=== PATIENT | female | born 1970 | race Caucasian/White ===

== ENCOUNTER 2019-09-13 06:19 | Outpatient (CLI) | payer OTHER ==
[2019-09-13 12:21] LABS: Anion Gap 14 mmol/L (10-20); BUN (Urea Nitrogen) 22 mg/dL (9.8-20.1); Calc. Creatinine Clearance 0 mL/min (70-130); Calcium 9.7 mg/dL (7.8-10.44); Carbon Dioxide 29 mmol/L (22-29); Chloride 104 mmol/L (98-107); Estimated GFR-MDRD 43; Glucose 87 mg/dL (70-105); Potassium 4.4 mmol/L (3.5-5.1); Sodium 143 mmol/L (136-145)
[2019-09-13 17:43] LABS: SARS-CoV-2 MS2 Positive; SARS-CoV-2 N Gene Negative; SARS-CoV-2 S Gene Negative; SARS-CoV-2 by NAA Not Detected (NotDetected); SARS-CoV-2 orf1ab Negative
== END 2019-09-13 06:20 | disposition home or self-care (01) ==
LOC: LABBT 06:19
PROVIDERS: ATTEND Neurological Surgery
DX: Z01.812 Encounter for preprocedural laboratory examination (principal); Z11.59 Encounter for screening for other viral diseases; M54.16 Radiculopathy, lumbar region
CPT/HCPCS: 80048; 87635; U0003

== ENCOUNTER 2019-09-17 05:42 | Day surgery (SDC) | payer OTHER ==
[2019-09-11 10:15] VITALS: BMI 33.6
[2019-09-17] MEDS ORDERED: EPINEPHrine 1 MG/ML AMP ONE (06:46)
[2019-09-17] MEDS ORDERED: Thrombin 5000 UNITS/5 ML VIAL ONE (06:46)
[2019-09-17] MEDS ORDERED: Bupivacaine PF 0.5% 30 ML VIAL ONE (06:46)
[2019-09-17] MEDS ORDERED: Midazolam HCl 2 mg/2 ml Vial ONE (06:57)
[2019-09-17] MEDS ORDERED: Famotidine/PF 20 mg/2ml Vial ONE (07:00)
[2019-09-17] MEDS ORDERED: Propofol 500 MG/50 ML VIAL ONE ×2 (07:05→07:53)
[2019-09-17] MEDS ORDERED: Fentanyl 100 MCG/2 ML VIAL ONE ×3 (07:08→08:52)
[2019-09-17] MEDS ORDERED: Lidocaine 2% 10 ML INJ ONE (08:42)
[2019-09-17] MEDS ORDERED: Promethazine HCl 25 MG/ML VIAL ONE (08:47)
--- NOTE | 2019-09-17 08:47 | OP ---
DATE OF PROCEDURE: 09/17/2019 SAMPLE TAKER OPERATOR: Ludwin Gunn PA-C INDICATION: Pain. DIAGNOSIS: Lumbar radiculopathy. PROCEDURE PERFORMED: Left L5 decompression. ANESTHESIA: General. DESCRIPTION OF PROCEDURE: The patient was brought into the operating room and placed under general anesthesia. She was flipped from the supine to prone position on the operating room table. A linear incision was planned at the L5-S1 interspace. After prepping and draping and after an appropriate preoperative pause, an incision was created and the soft tissues were swept left of midline. A self-retaining retractor was placed and the C-arm images were obtained to confirm the appropriate location. High-speed cutting drill bit as well as 2, 3, and 4 mm Kerrisons were used to perform a laminectomy along the inferior aspect of L5 on the left and superior aspect of S1 on the left. The laminectomy was extended laterally to encompass the medial aspect of the facet joint in order to decompress the lateral recess. The descending S1 nerve root was identified. There were robust epidural veins in the area, which were carefully cauterized. There was facet hypertrophy present, which was the main component creating the lateral recess narrowing and S1 nerve root impingement. I did mobilize the S1 nerve root medially and inspect the disk space as well as slightly superiorly and there was no significant protuberant disk mass. As such, no annulotomy was performed. At the completion of procedure, the L5-S1 lateral recess and therefore descending S1 nerve root was well decompressed. The wound was irrigated. Hemostasis was maintained throughout. The wound was then closed in anatomic layers, and a pressure dressing was applied. There were no known procedural complications. Job ID: [id number]
[2019-09-17] MEDS ORDERED: Lidocaine 1% PF 5 ML VIAL ONE (10:04)
[2019-09-17] MEDS ORDERED: Ondansetron PF 4 MG/2 ML Vial ONE (10:04)
[2019-09-17] MEDS ORDERED: Rocuronium Bromide 10 MG/ML (10ML VIAL) ONE (10:04)
[2019-09-17] MEDS ORDERED: PROPOFOL 200 MG/20 ML VIAL ONE (10:04)
[2019-09-17] MEDS ORDERED: Dexamethasone 20 MG/5 ML VIAL ONE (10:04)
[2019-09-17] MEDS ORDERED: Glycopyrrolate 0.2 MG/ML 5 ML SYRINGE ONE (10:04)
[2019-09-17] MEDS ORDERED: Ketorolac Tromethamine 30 MG/ML VIAL ONE (10:04)
[2019-09-17] MEDS ORDERED: HYDROcodone/Acetaminophen 5/325 mg Tablet ONE (10:30)
--- NOTE | 2019-09-17 16:07 | EKG ---
Test Reason : PREOP Blood Pressure : / mmHG Vent. Rate : 077 BPM Atrial Rate : 077 BPM P-R Int : 132 ms QRS Dur : 088 ms QT Int : 380 ms P-R-T Axes : 050 089 074 degrees QTc Int : 430 ms Normal sinus rhythm Normal ECG No previous ECGs available Confirmed by ELAINE COLINDRES ([id number]) on 09/17/2019 4:06:48 PM Referred By: PALMIRA Confirmed By:ELAINE COLINDRES
== END 2019-09-17 11:30 | disposition home or self-care (01) ==
LOC: SDC 05:42
PROVIDERS: ATTEND Neurological Surgery
PROC: 01NB0ZZ Release Lumbar Nerve, Open Approach (ICD-10-PCS; principal; 2019-09-17)
DX: M51.16 Intervertebral disc disorders with radiculopathy, lumbar region (principal); Z79.82 Long term (current) use of aspirin; Z79.899 Other long term (current) drug therapy; Z88.2 Allergy status to sulfonamides; Z88.5 Allergy status to narcotic agent
CPT/HCPCS: 76000; 93005; 93010; J0171; J0690; J1100; J1885; J2250; J2405; J2550; J2704; J3010; S0020; S0028

== ENCOUNTER 2020-01-21 12:42 | Outpatient (CLI) | payer OTHER ==
--- NOTE | 2020-01-21 12:58 | RAD ---
Exam: Lumbar spine 2 views HISTORY: Lumbar region of the. Status post surgery. FINDINGS: 5 lumbar type vertebra. Lumbar spine vertebral body height is maintained. No fracture. Disc space heights are preserved. No spondylolisthesis or spondylolysis. Visualized sacrum and bony pelvis are intact. IMPRESSION: No radiographic evidence of significant degenerative change.
== END 2020-01-21 12:43 | disposition home or self-care (01) ==
LOC: TBSIIMAG 12:42
PROVIDERS: ATTEND Neurological Surgery
DX: M54.16 Radiculopathy, lumbar region (principal)
CPT/HCPCS: 72100

== ENCOUNTER 2020-05-13 10:34 | Outpatient (CLI) | payer OTHER | END 2020-05-13 10:35 | disposition home or self-care (01) | LOC: BICMRI 10:34 | PROVIDERS: ATTEND Neurological Surgery | DX: M47.26 Other spondylosis with radiculopathy, lumbar region (principal); M47.27 Other spondylosis with radiculopathy, lumbosacral region; Z98.890 Other specified postprocedural states | CPT/HCPCS: 72158; 82565 ==